=== PATIENT | male | born 1955 | race Caucasian/White ===

== ENCOUNTER 2023-11-20 19:15 | Emergency (ER) | payer MEDICARE, MEDICAID ==
[~2023-11-20] VITALS: Ht 170.2 cm; Wt 78.9 kg
[2023-11-20 19:19] VITALS: BP_SYST 130; PULSE 123; RESP 17; TEMP 97.4; O2SAT 99
[2023-11-20] MEDS ORDERED: LORazepam 2 MG/ML VIAL ONE (19:21)
[2023-11-20] MEDS: LORazepam 2 MG/ML VIAL IVP ONE (19:30)
[2023-11-20] MEDS: levETIRAcetam 500 MG IV PREMIX 100 ML IV ONE (19:32)
[2023-11-20 19:48] LABS: BASOPHILS % (AUTO) 0.5 % (0.0-2.0); EOSINOPHILS # (AUTO) 0.1 K/uL (0.0-0.4); EOSINOPHILS % (AUTO) 1.3 % (0.0-4.0); HEMATOCRIT 42.2 % (36-54); HEMOGLOBIN 14.9 g/dL (14.0-18.0); LYMPHOCYTES # (AUTO) 2.2 K/uL (1.0-5.5); LYMPHOCYTES % (AUTO) 28.9 % (20.5-51.5); MEAN CORPUSCULAR HEMOGLOBIN 32 pg (27-31); MEAN CORPUSCULAR HGB CONC 35 % (32-36); MEAN CORPUSCULAR VOLUME 89 fL (79.0-98.0); MONOCYTES # (AUTO) 0.3 K/uL (0.0-1.0); MONOCYTES % (AUTO) 3.7 % (1.7-9.3); NEUTROPHILS # (AUTO) 5.1 K/uL (1.8-7.7); NEUTROPHILS % (AUTO) 65.6 % (40.0-70.0); PLATELET COUNT (AUTO) 269 K/uL (130-430); RED BLOOD CELL COUNT(AUTO) 4.72 MIL/uL (4.2-6.2); RED CELL DISTRIBUTION WIDTH 13.6 % (9.0-15.0); WHITE BLOOD COUNT (AUTO) 7.8 K/uL (4.8-10.8)
[2023-11-20 20:10] LABS: ALBUMIN 4.4 g/dL (3.4-4.8); CALCIUM 9.3 mg/dL (8.4-11.0); CREATININE 0.9 mg/dL (0.55-1.30); POTASSIUM 3.7 mmol/L (3.5-5.1); TOTAL BILIRUBIN 0.2 mg/dL (0.0-1.0); TOTAL PROTEIN, SERUM 7.6 g/dL (6.4-8.3)
[2023-11-20 21:15] VITALS: TEMP 97.2
[2023-11-20 21:53] VITALS: BP_SYST 119; PULSE 111; RESP 13; O2SAT 98
== END 2023-11-20 21:53 | disposition home or self-care (01) ==
LOC: SED 19:15
DX: R56.9 Unspecified convulsions (principal); I10 Essential (primary) hypertension; Z86.73 Personal history of transient ischemic attack (TIA), and cerebral infarction without residual deficits
CPT/HCPCS: 99284; 96365; 96375; 80053; 85025; 36415; J1953; J2060